=== PATIENT | female | born 1965 | race Hispanic/Latino ===

== ENCOUNTER → 2024-02-11 | Outpatient (CLI) | payer MEDICARE | END | disposition home or self-care (01) | LOC: RAH 13:16 | PROVIDERS: ATTEND Family Medicine | DX: Z12.31 Encounter for screening mammogram for malignant neoplasm of breast (principal); R92.333 Mammographic heterogeneous density, bilateral breasts | CPT/HCPCS: 77067 ==

== ENCOUNTER 2024-08-23 06:39 | Emergency (ER) | payer MEDICARE ==
[~2024-08-23] VITALS: Ht 160 cm; Wt 107.0 kg
[2024-08-23] MEDS: ORPHENADRINE 60MG/2ML IM ONE (08:26)
[2024-08-23] MEDS: ketOROlac 30MG VIAL (30MG/ML) IM ONE (08:27)
--- NOTE | 2024-08-23 08:41 | HMCIMG ---
SHOULDER COMP 2+VWS RT HISTORY: Pain COMPARISON: None TECHNIQUE: 2 images of right shoulder were obtained. FINDINGS: There is no acute displaced fracture or dislocation. Degenerative changes are seen. IMPRESSION: 1. Findings as described above.
[2024-08-23] MEDS ORDERED: DICL20GE TP (08:49)
--- NOTE | 2024-08-23 08:49 | ERN ---
General Chief Complaint: Upper Extremity Pain/Injury Stated Complaint: R ARM PAIN Time Seen by MD: 07:08 Source: patient History of Present Illness Initial Comments PATIENT IS A 58-YEAR-OLD FEMALE COMING IN TO BE EVALUATED FOR RIGHT SHOULDER PAIN. PATIENT STATES THAT LAST NIGHT SHE WOKE UP SHE WAS HAVING SOME DISCOMFORT AND STATES THAT WHEN SHE TRIES TO ELEVATE HER ARM PAST 45 SHE STARTED HAVING DISCOMFORT. SHE LOCALIZES THE PAIN TO THE RIGHT SHOULDER REGION AND STATES IT RADIATES DOWN HER RIGHT POSTERIOR TRAPEZIUS REGION. 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 HEAD/FACE: NO SIGNS OF TRAUMA. EENT: NO EYE PAIN, NO BLURRED VISION, NO TEARING, NO DOUBLE VISION, NO EAR PAIN, NO EAR DISCHARGE, NO NOSE PAIN, NO NASAL CONGESTION, NO THROAT PAIN, NO THROAT SWELLING, NO MOUTH PAIN. RESPIRATORY: NO COUGH, NO ORTHOPNEA, NO SOB, NO STRIDOR, NO WHEEZING. CARDIOVASCULAR: NO CHEST PAIN, NO EDEMA, NO PALPITATIONS, NO SYNCOPE. GASTROINTESTINAL/ABDOMINAL: NO ABDOMINAL PAIN, NO CONSTIPATION, NO DIARRHEA, NO NAUSEA, NO VOMITING. GENITOURINARY: NO ABNORMAL DISCHARGE, NO DYSURIA, NO FREQUENT URINATION, NO HEMATURIA. NO COMPLAINTS OF PAIN IN THE GENITALS. MUSCULOSKELETAL: NO BACK PAIN, NO GOUT, JOINT PAIN, NO JOINT SWELLING, NO MUSCLE PAIN, NO MUSCLE STIFFNESS, NO NECK PAIN. INTEGUMENTARY: NO CHANGE IN COLOR, NO CHANGE IN HAIR/NAILS, NO DRYNESS, NO LESION, NO LUMPS, NO RASH. NEUROLOGICAL/PSYCH: NO ANXIETY, NOT DEPRESSED, NO EMOTIONAL PROBLEM, NO HEADACHE, NO NUMBNESS, NO PRE-EXISTING DEFICIT, NO HISTORY OF SEIZURES, NO TREMORS, NO WEAKNESS. HEMATOLOGIC/LYMPHATIC: NOT ANEMIC, NO HISTORY OF BLOOD CLOTS, NO APPARENT BLEE DING, NO BRUISING, GLANDS NOT SWOLLEN. ALL SYSTEMS NEGATIVE, EXCEPT NOTED. Physical Exam Physical Exam Dictation VITAL SIGNS: REVIEWED. GENERAL APPEARANCE: ALERT, ORIENTED X3, NO ACUTE DISTRESS, OBESE. HEAD AND FACE: NON-TRAUMATIC. EYES: PERRL, PINK CONJUNCTIVAS, EYELID NO TRAUMA, ANTERIOR CHAMBER CLEAR. EARS: PINNAS INTACT AND NO SIGNS OF TRAUMA OR ERYTHEMA. EAR CANALS CLEAR AND NO DISCHARGE. TMS NO ERYTHEMA. NOSE: NO DISCHARGE, NO BLEEDING. OROPHARYNX: MOUTH NORMAL, TEETH NO CARIES, TONGUE PINK. PHARYNX CLEAR, NO ERYTHEMA. TONSILS NO EXUDATES, NO ABSCESSES NOTED. MUCOUS MEMBRANE MOIST. NECK: SUPPLE, NON-TENDER, NO THYROMEGALY, NO MASSES, NO JVD, NO BRUITS. BREAST: DEFERRED. CHEST: NO TENDERNESS, NO CREPITUS, NO PARADOXICAL MOVEMENT, NO RETRACTIONS. LUNGS: CLEAR, WELL-VENTILATED, SYMMETRIC, NO RALES, NO WHEEZING, NO RHONCHI, NO STRIDOR, GOOD BREATH SOUNDS BILATERALLY. HEART: REGULAR RATE, REGULAR RHYTHM, NO MURMUR, NO GALLOPS. VASCULAR: NO PERIPHERAL EDEMA. ABDOMEN: SOFT, POSITIVE BOWEL SOUNDS, NONDISTENDED, NO GUARDING, NONTENDER, NO REBOUND, NO MASSES NO HEPATOMEGALY, NO SPLENOMEGALY, NO VALENCIA'S SIGN, NO HERNIAS. RECTAL: DEFERRED. GENITAL: DEFERRED. NEUROLOGICAL: NORMAL SPEECH, GROSS MOTOR FUNCTION INTACT, GROSS SENSORY FUNCTION INTACT. MUSCULOSKELETAL: NECK NONTENDER, FULL RANGE OF MOTION, BACK NONTENDER, FULL RANGE OF MOTION. EXTREMITIES: NONTENDER, FULL RANGE OF MOTION. SKIN: COLOR PINK, DRY, NO TURGOR, NO RASH, NO LACERATIONS, NO ABRASIONS, NO CONTUSIONS. LYMPHATICS: DEFERRED. Results Laboratory and Microbiology Labs Reviewed?: Yes EKG/XRAY/US/CT/MRI X-RAY Comment [address] [id number] IMAGING REPORT Signed PATIENT: UYEN CLAIRE MR#: [id number] : 1965 SEX: F AGE: 58 LOCATION: [facility] ORDER 6 STATUS: REG ER REPORT#: [id number] SERVICE 5 REASON: SHOULDER PAIN ORDERING PHYSICIAN: BERYL PINEDA MD PROCEDURE: SHOL 2V RT - SHOULDER COMP 2+VWS RT SHOULDER COMP 2+VWS RT HISTORY: Pain COMPARISON: None TECHNIQUE: 2 images of right shoulder were obtained. FINDINGS: There is no acute displaced fracture or dislocation. Degenerative changes are seen. IMPRESSION: 1. Findings as described above. DICTATED BY: KIMMIE ALBARADO MD DATE: 08/23/24837 ELECTRONICALLY SIGNED BY: KIMMIE ALBARADO MD DATE: 08/23/24840 [facility] MDM: DIFFERENTIAL DIAGNOSIS: RIGHT SHOULDER STRAIN, ROTATOR CUFF TEAR, SHOULDER DISLOCATION, SHOULDER FRACTURE, PATIENT IS A 58-YEAR-OLD FEMALE COMING IN TO BE EVALUATED FOR RIGHT SHOULDER PAIN. ON PHYSICAL EXAM THERE IS TENDERNESS ON PALPATION TO THE RIGHT DELTOID REGION, PATIENT IS ABLE TO ADDUCT SHOULDER BUT NOT COMPLETELY STATES THERE IS TENDERNESS AND PAIN ON TRYING TO ABDUCT COMPLETELY. SHOULDER X-RAY DID NOT DISCLOSE ACUTE FINDINGS. A SLING WAS PLACED ANTI-INFLAMMATORIES AND ANTISPASMODICS WERE GIVEN PAIN IMPROVED. PATIENT WILL BE DISCHARGED IN STABLE CONDITION I ADVISED HER APPROPRIATE FOLLOW UP WITH PCP IN 1-2 DAYS FOR ONGOING EVALUATION AND MANAGEMENT OF CHRONIC PAIN ED Course Orders Procedure Category Date Status Time Shoulder Comp 2+Vws Rt RAD 08/23/24 Resulted 07:26 Orphenadrine Citrate PHA 08/23/24 Complete (Norflex) 07:30 Ketorolac PHA 08/23/24 Complete Tromethamine 30mg/Ml 07:30 Current Medications Medications (Trade) Dose Ordered Sig/Sharda Route PRN Reason Start Time Stop Time Status Last Admin Dose Admin Ketorolac Tromethamine (toRADol) 30 mg ONCE ONCE IM 08/23/24 07:30 08/23/24 07:43 DC 08/23/24 08:27 Orphenadrine Citrate (Norflex) 60 mg ONCE ONCE IM 08/23/24 07:30 08/23/24 07:43 DC 08/23/24 08:26 Vital Signs Date Time Temp Pulse Resp B/P (MAP) Pulse Ox O2 Delivery O2 Flow Rate FiO2 08/23/24 07:48 98.1 60 16 122/62 96 Room Air* 0 21 08/23/24 06:59 98.2 90 20 107/55 96 Room Air* 0 21 08/23/24 06:40 98.1 97 16 124/81 96 Room Air 0 DX & DISP Disposition: Discharge Departure Impression: Primary Impression: Right shoulder strain Additional Impression: Rotator cuff strain Condition: Stable Scripts Diclofenac Sodium (Voltaren Arthritis Pain) 1 % Gel..gram. 4 GM TP BID for 10 Days, #1 TUBE Prov: BERYL PINEDA MD 08/23/24 Additional Instructions: FOLLOW-UP WITH PRIMARY CARE PROVIDER IN 1 TO 2 DAYS. TAKE MEDICATIONS DIRECTED HERE IN THE EMERGENCY ROOM. OKAY TO CONTINUE HOME MEDICATIONS UNLESS OTHERWISE DISCUSSED DURING YOUR VISIT IN THE EMERGENCY ROOM TODAY. RETURN TO YOUR NEAREST EMERGENCY ROOM IF SYMPTOMS WORSEN OR IF THERE IS NO IMPROVEMENT. CALL 911 IF YOU NEED IMMEDIATE ASSISTANCE. TAKE TYLENOL [id number] NEEDED AND IF NO CONTRAINDICATIONS ARE PRESENT. INCREASE ORAL HYDRATION. A WOUND CULTURE OR URINE CULTURE WAS ORDERED HERE IN THE EMERGENCY ROOM DEPARTMENT PLEASE FOLLOW-UP WITH PRIMARY CARE PROVIDER AND ADVISE THEM TO GET REPEAT PORTS FROM OUR FACILITY. IF YOU HAD ANY MARIEL WRAP/SPLINTS THAT WERE APPLIED HERE, PLEASE DO NOT REMOVE THEM UNTIL YOU SEE YOUR PRIMARY CARE OR SPECIALTY. REFERRALS: Referrals: YOSSI BADILLO (PCP) Time of Disposition: 08:48 BERYL PINEDA MD Aug 23, 2024 08:49
[2024-08-23 09:50] VITALS: BP 127/63; PULSE 70; RESP 16; TEMP 98.1; O2SAT 96
--- NOTE | 2024-08-23 10:24 | NUR ---
PATIENT DEPARTED AT THIS TIME.
== END 2024-08-23 10:02 | disposition home or self-care (01) ==
LOC: EDH 06:39
DX: S46.011A Strain of muscle(s) and tendon(s) of the rotator cuff of right shoulder, initial encounter (principal); E11.9 Type 2 diabetes mellitus without complications; I10 Essential (primary) hypertension; J44.9 Chronic obstructive pulmonary disease, unspecified; M19.90 Unspecified osteoarthritis, unspecified site; Z88.0 Allergy status to penicillin; Z90.5 Acquired absence of kidney; Z90.710 Acquired absence of both cervix and uterus; X58.XXXA Exposure to other specified factors, initial encounter; Y93.89 Activity, other specified; Y92.89 Other specified places as the place of occurrence of the external cause; Y99.8 Other external cause status
CPT/HCPCS: 99285; 73030; 96372 ×2; J1885; 99284; J2360